=== PATIENT | male | born 1950 | race Caucasian/White ===

== ENCOUNTER 2016-11-11 14:03 | Day surgery (SDC) | payer MEDICARE, OTHER ==
[2016-11-11] VITALS (12 sets, daily range): BP systolic 117–157; BP diastolic 67–82; PULSE 48–65; RESP 10–23; O2SAT 95–99
[~2016-11-11] VITALS: Ht 175.3 cm; Wt 91.5 kg
[~2016-11-11 14:03] MED LIST: ASPI-973 PO; ATOR80TA PO; FINA5TAB9 PO; LOSA50TA37 PO; PHN100C PO; TAMS0.4C98 PO; coq10
[2016-11-11] MEDS ORDERED: fentaNYL-PF 50 mCg/mL 2 mL Inj ONE (14:04)
[2016-11-11] MEDS ORDERED: Propofol 10,000 mCg/mL 20 mL Inj ONE (14:04)
[2016-11-11] MEDS ORDERED: Bupiv-Spinal 0.75%/Dex 8.25% 2 mL Inj ONE (14:04)
[2016-11-11] MEDS: Lactated Ringer's 1,000 ML IV SCH ×2 (14:33→15:23)
[2016-11-11] MEDS ORDERED: Lactated Ringer's 500 ML IV PRN (16:00)
[2016-11-11] MEDS ORDERED: hydrALAZINE 20 mg/mL Inj IVPUSH PRN (16:00)
[2016-11-11] MEDS ORDERED: Lactated Ringer's 1,000 ML IV SCH (16:00)
[2016-11-11] MEDS ORDERED: MetoCLOpramide 5 mg/mL 2 mL Inj IVPUSH PRN (16:00)
[2016-11-11] MEDS ORDERED: HYDROmorphone 1 mg/mL Inj IVPUSH PRN (16:00)
[2016-11-11] MEDS ORDERED: Ondansetron 2 mg/mL 2 mL Inj IVPUSH PRN (16:00)
[2016-11-11] MEDS ORDERED: fentaNYL-PF 50 mCg/mL 2 mL Inj IVPUSH PRN (16:00)
[2016-11-11] MEDS ORDERED: Dexamethasone 4 mg/mL Inj IVPUSH PRN (16:00)
[2016-11-11] MEDS ORDERED: Phenylephrine 10,000 mCg/mL Inj IVPUSH PRN (16:00)
[2016-11-11] MEDS ORDERED: Labetalol 5 mg/mL 4 mL Inj IV PRN (16:00)
[2016-11-11] MEDS ORDERED: EPHEDrine Sulfate 50 mg/mL Inj IVPUSH PRN (16:00)
[2016-11-11] MEDS ORDERED: Atropine 0.4 mg/mL Inj IVPUSH PRN (16:00)
--- NOTE | 2016-11-11 16:02 | PCM.HPANE ---
Patient Data Surgeon Admitting Provider: Attending Provider:Mayra Cox MD Primary Care Physician:Augustin Nayak MD Other Provider:Senait [place] Anesthesia Reason for Visit Nocturia Ht/WT & BMI Height (Feet): 5 Height (Inches): 9 Weight (Kilograms): 91.5 Body Mass Index 29.00 Allergies Coded Allergies: No Known Allergies (Unverified , 11/11/16) Past Anesthesia History Anesthesia History: Positive for:: Anesthesia Reactions (nausea, groggy with sodium pentothal, difficult to wake), Denies:: Abnormal Airway, Difficult Intubation, Fam Anesthesia Reaction Diabetes History Hx Diabetes?: No MRSA MRSA: No Medications Blood Thinner: Aspirin Hypertension Medication: Yes Home Meds Incl Beta Gus: No Reported Medications Losartan Potassium 50 Mg [id number] Mg PO DAILY 11/10/16 Atorvastatin (Lipitor)80 Mg [id number] Mg PO DAILY Ref 0 11/10/16 Tamsulosin (Flomax)0.4 Mg Capsule0.4 Mg PO BID Ref 0 11/10/16 Finasteride 5 Mg Tablet5 Mg PO DAILY 30 Days Ref 0 11/10/16 Phenytoin Sodium ER (Dilantin)100 Mg [id number] Mg PO BID 11/10/16 [coq10] No Conflict CheckUnknown Dose DAILY 11/10/16 Aspirin 81 Mg [id number] Mg PO DAILY Ref 0 11/10/16 Discontinued Reported Medications Nitroglycerin-Expunged Drug, Do Not Renew! 1 Patch .24 H Patch.td24 05/14/08 [Asa] TAB No Conflict Check 05/14/08 Atorvastatin-Expunged Drug, Do Not Renew! 20 Mg Tablet 05/14/08 Metoprolol Suc-Expunged Drug, Do Not Renew! 25 Mg Tber 05/14/08 History HEENT History: Positive for:: Hearing Problem Denies:: Abnormal Airway Cataracts Difficult Intubation Dysphagia Glaucoma Sinus Problem TMJ Hx of Heart Problems?: Yes Cardiovascular History: Positive for:: Cardiac Surgery (stent placed ) Hypertension Denies:: AICD Heart Murmur Irregular Heartbeat Pacemaker Respiratory History: Denies:: Asthma COPD Emphysema Oxygen Administration Pneumonia Tuberculosis Use of C-PAP Machine Use of Inhalers / NEBS Hx Neurologic Problems?: Yes Neurological History: Positive for:: Seizures (isolated incident- 2016) Denies:: CVA Dizziness Headaches Multiple Sclerosis Parkinson's Disease TIA Other Neurological Pertinent: workup MRI, CT scan, and CACHIL DEHE all done- negative results Hx of GI Problems?: Yes Gastrointestinal History: Positive for:: Gastroesphageal Reflux (off/on, occasional tums ) Denies:: Cirrhosis Gall Bladder Disease Heartburn Hepatitis Hiatal Hernia Liver Disease Rectal Bleeding Hx of Problems?: No Genitourinary History: Denies:: Kidney Stones Urinary Tract Infection Male Hx: Positive for:: Prostate Problems (current admission problem) Skin History: Denies:: History Skin Disorders? Pressure Ulcers Hx Musculoskeletal Problems?: Yes Musculoskeletal History: Positive for:: Musculoskeletal Trauma (past hx shoulder surgery, elbow) Denies:: Back Injury Fibromyalgia Joint Replacement Myasthenia Gravis Osteoarthritis Rheumatoid Arthritis Hx of Psycho/Social Problems?: No Psycho Social History: Denies:: Anxiety Hx Depression Hx Surgeries?: Yes (shoulder, hand- elbow) Hx Any Other Health Problems?: Yes Other History: Denies:: Cancer Thyroid Disease History Blood Transfusions: Positive for:: Accept Blood Products? Denies:: Blood Transfusions Hx Diabetes: No Hx Alcohol Use: YesAlcoholic Drinks Per Day: wine in eveningsHx Substance Use : NoHave You Smoked inLast 12 mo: No Stop/Bang S-Snoring: Do You Snore Loudly: No T-Tired: feel tired, fatigued: Yes O-Obsered: Observed not breath: No P-Blood Pressure: treated: Yes B- Body Mass Index > 35 kg/m2: No A- Age over 50: Yes N- Neck Large Circumference: No G- Gender Male: Yes JUAN CARLOS Total Score: 4 Risk Assessment Category Category 1A: Patient has history of documented sleep apnea, and HAS NOT received any narcotic, sedative or anesthesia administration during this stay. Category 1B: Patient has history of documented sleep apnea, and HAS received any narcotic , sedative or anesthesia administration during this stay Category 2: Patient has SUSPECTED Obstructive Sleep Apnea, and HAS received any narcotic , sedative or anesthesia administration during this stay. Category 3: Patient has SUSPECTED Obstructive Sleep Apnea and HAS NOT received narcotic, sedative or anesthesia administration during this stay. Category 4: Outpatient in Procedural Areas with known sleep apnea or who screen positive for High Risk via the STOP/BANG questionnaire. Exam Exam General Appearance: Alert, Oriented X3, Cooperative, No Acute Distress HEENT/AIRWAY: MP 2, Neck Movement (FROM), Mouth Opening (3 FBMO) Lungs: Normal Air Movement Heart: Regular Rate/Rhythm Plan Impression Patient chart reviewed, patient interviewed and anesthestic plan with risks, benefits, and alternatives discussed, and informed consent obtained. NPO Status: > 8 hrs ASA Physical Status: ASA2 Mod Systemic Disease Anesthetic Plan: SAB Bene/Risks/Altern/Consents: Yes HP Complete Prior to Induction: Yes Kelvin Garcia MD Nov 11, 2016 14:23
[2016-11-11] MEDS ORDERED: HYDROcodone-APAP 5-325 mg Tablet PO PRN (17:10)
--- NOTE | 2016-11-11 18:10 | OP ---
[address] [address] OPERATIVE REPORT PATIENT: JAIME GRACIA : 1950 MR#: [id number] ADMIT: 11/11/2016 JOB ID: [id number] DATE OF SURGERY: 11/11/2016 PREOPERATIVE DIAGNOSIS(ES): Urinary retention. POSTOPERATIVE DIAGNOSIS(ES): Urinary retention. PROCEDURE PERFORMED: Cystoscopy and transurethral resection of prostate. SURGEON: Mayra Cox MD FINDINGS: 1. Bilateral orthotopic ureteral orifices. 2. Trabeculated bladder. 3. Hypertrophic lobes of prostate as well as intravesical lobes of prostate. ANESTHESIA: Spinal. ESTIMATED BLOOD LOSS: Less than 20 mL. DRAINS: An 18-Japanese coude catheter to the bladder. SPECIMENS: Prostate chips. COMPLICATIONS: None. CONDITION: Stable. DESCRIPTION OF PROCEDURE: The patient is a 66-year-old gentleman with urinary retention who now presents for resection of his prostate. After informed consent was obtained, the patient taken to the operating room. A time-out was performed identifying correct patient, surgical site, and procedure. Spinal anesthesia was administered. He was placed in the lithotomy position and all pressure points were identified and appropriately padded. His genitals were then prepped and draped in the usual sterile fashion. He was given intravenous antibiotics just prior to start of the procedure. A 26-Japanese resectoscope was applied to the patient's urethral meatus and advanced to the bladder. The bladder was drained. Both ureteral orifices were seen in orthotopic position. Resection commenced in piecemeal fashion from the right lobe to the left lobe, working from the bladder neck to just proximal to the verumontanum. The resection commenced within the prostatic urethra. The intravesical lobe of the prostate fell into the field and this was resected in its entirety. An Ellik was used throughout the procedure to evacuate the prostatic chips. The ureteral orifices were identified multiple times through the procedure, as well as at the end of the procedure, and they were left as undisturbed. At the end of procedure hemostasis was excellent. An 18-Japanese coude catheter was then placed in the patient's bladder and insufflated with 20 cc of sterile water. It was set to dependent drainage. The patient did tolerate the procedure. He was then taken to the PACU in good and stable condition. [facility]
--- NOTE | 2016-11-11 19:16 | PCM.ANEP1 ---
Post Anesthesia Phase 1 PACU Phase 1 Assessment Vital Signs Vital Signs Date Time Temp Pulse Resp B/P Pulse Ox O2 Delivery O2 Flow Rate FiO2 11/11/16 17:30 36 52 10 136/73 99 Room Air 11/11/16 17:25 36.3 48 11 125/69 99 Room Air 11/11/16 17:20 52 10 126/76 98 Room Air 11/11/16 17:15 54 13 117/78 98 Room Air 11/11/16 17:10 56 12 133/70 95 Room Air 11/11/16 17:05 58 23 119/67 95 Room Air 11/11/16 17:03 23 96 11/11/16 17:00 58 15 120/68 95 Room Air 11/11/16 16:55 36.4 61 15 120/75 95 Room Air 11/11/16 14:23 36.5 65 18 157/81 98 Room Air Anesthetic Administered: SAB Level of Alertness: Awake, talking ARAGON's with Equal Strength: Yes Pain: No Nausea or Vomiting: No Oxygen Delivery: Simple Mask Lungs: Normal Air Movement Dermatome Level: Full Sensation Kelvin Garcia MD Nov 11, 2016 19:16
--- NOTE | 2016-11-11 19:16 | PCM.ANEP2 ---
Post Anesthesia Evaluation ASA/CMS Post Anesthesia VS in Patient's Normal Range?: Yes Resp Stable; Airway Patent?: Yes CV Function & Hydration Stable: Yes Mental Status Recovered?: Yes Pain control Satisfactory?: Yes N/V Control Satisfactory?: Yes Kelvin Garcia MD Nov 11, 2016 19:16
--- NOTE | 2016-11-11 20:00 | NUR ---
PostOp Transfer Pt comes from PACU with Bilateral numbness and tingling of LE and inability to move LE after spinal block. James in place and draining to gravity watermelon colored into leg bag. Pt has IV patent, RA, and denies CP, SOB, pain, nausea. Tolerating PO fluids. WIll continue to monitor until pt is able to safely ambulate. D/C instruction and education regarding his James catheter in which will stay in at D/C. Care continues until spinal has worn off and pt able to ambulate safely for D/C.
[2016-11-12 00:10] VITALS: RESP 16; O2SAT 99
--- NOTE | 2016-11-12 00:14 | NUR ---
Sensation and D/C Pt has full sensation in bilat LE at this time. MAEE. Denies pain, nausea, CP, or SOB. Able to ambulate with steady gait, denies lightheaded or dizziness. Denies any numbness or tingling. Pt has ride home with to home. James patent and draining to gravity. Leg bag education and large collection bag for sleep provided. Instructed pt and again on how to change James collection bags and drain. Pt and states that they feel safe to go home. Pt has a few steps into home but very short distance into home from car. Advised pt to look at stairs when stepping onto them in case his depth perception was off. Pt ambulated with steady gait to wheel chair outside of room, was wheeled to from loby, and mabulated with steady gait to vehicle.
--- NOTE | 2016-11-15 11:44 | PATH ---
SURGICAL PATHOLOGY Attending Physician:Mayra Cox, CASE STATUS: Signed Out PATIENT NAME: JAIME GRACIA PID: [id number] : 1950 DATE COLLECTED:11/11/2016 23:38 SPECIMEN: Prostate, Chips CLINICAL HISTORY: RESECTED PROSTATE FINAL DIAGNOSIS: 1.PROSTATE CHIPS, TUR: BENIGN FIBROGLANDULAR HYPERPLASIA. NO EVIDENCE OF MALIGNANCY. ICD10 code N40.1 GROSS DESCRIPTION: The specimen is received in one formalin filled container labeled with the patient's name. The specimen is sublabeled "resected prostate" and consists of multiple portions of pink-hays rough tissue which aggregate to 7.0 x 5.0 x 1.0 CM. The specimen weighs 11.6 g in total. Courtesy Booth Cashier sections are submitted in cassettes 1A-1I. MICRO DESCRIPTION: See diagnosis. ICD-9 CODES: CPT CODES: 1: 32363 Electronically Signed Out Corrina Toribio MD [facility] Pathology [facility] [address], [place] [address] Technical component performed at [facility], [address] [place] [address] [address], [place], [address]
== END 2016-11-12 00:14 | disposition home or self-care (01) ==
LOC: SAS 14:03 → OSC 19:59 → SAS 11-12 00:14
PROVIDERS: ATTEND Urology
DX: N40.1 Benign prostatic hyperplasia with lower urinary tract symptoms (principal); E78.5 Hyperlipidemia, unspecified; I25.10 Atherosclerotic heart disease of native coronary artery without angina pectoris; K21.9 Gastro-esophageal reflux disease without esophagitis; I10 Essential (primary) hypertension; Z79.82 Long term (current) use of aspirin; Z95.5 Presence of coronary angioplasty implant and graft
CPT/HCPCS: 52601; J0690; J2250; J7120